=== PATIENT | male | born 1950 | race Caucasian/White ===

== ENCOUNTER → 2018-04-04 15:04 | Outpatient (CLI) | payer MEDICARE, OTHER ==
[2015-12-10 12:11] VITALS: BMI 33.5
[~2018-04-04 15:04] MED LIST: AMBIEN10 MG PO; BAYER ASPIRIN325 MG PO; DIOVAN320 MG PO; HYDROCODONE-APA1 TAB PO; LASIX20 MG PO; NAPROSYN500 MG PO; PLAVIX75 MG PO; PRAVACHOL40 MG PO; PRILOSEC20 MG PO; RYTHMOL225 MG PO; TENORMIN25 MG PO
== END | disposition home or self-care (01) ==
LOC: D.CT 15:04
DX: R10.9 Unspecified abdominal pain (principal)

== ENCOUNTER → 2018-04-18 12:21 | Outpatient (CLI) | payer MEDICARE, OTHER ==
[2015-12-10 12:11] VITALS: BMI 33.5
== END | disposition home or self-care (01) ==
LOC: D.NM 12:21
DX: R10.9 Unspecified abdominal pain (principal)

== ENCOUNTER → 2019-07-17 10:14 | Outpatient (CLI) | payer MEDICARE, OTHER ==
[2015-12-10 12:11] VITALS: BMI 33.5
[~2019-07-17 10:14] MED LIST changes: +COZAAR100 MG PO; +FISH OIL 1,0001 CA1 PO; +PROTONIX40 MG PO; +REQUIP0.25 MG PO; +VITAMIN D31000 UNIT PO
--- NOTE | 2019-07-25 11:41 | ST ---
PATIENT:IZABELA SAMUELS MEDICAL RECORD: [id number] SEX: M LOCATION:[facility] ORDER #: ADMISSION DATE: 07/17/19 AGE OF PATIENT: 69 REFERRING PHYSICIAN: INTERPRETING PHYSICIAN: ISIDRA MAYA MD DATE OF SERVICE: 07/17/2019 Nuclear Stress Test INDICATIONS: Angina, coronary artery disease, status post coronary bypass graft surgery, shortness of breath, hypertension. DESCRIPTION OF THE PROCEDURE: He was exercised on standard Lexiscan protocol with 33 mCi of sestamibi injected at peak stress, 11 mCi used previously for rest images. FINDINGS: Gated SPECT reveals a mildly depressed ejection fraction of 46% with dilated left ventricular cavity. SPECT Imaging: Cardiolite was used as myocardial perfusion agent. There are large areas of fixed perfusion defect anteriorly, septally, apically as well as inferiorly, this includes basal, mid, and apical anterior segments. The apical segment, septal, basal septal, mid septal, apex itself, basal inferior, mid inferior, apical inferior. There is no clear-cut evidence of reversible ischemia, but multiple areas of fixed perfusion defect. OVERALL IMPRESSION: This is a significantly abnormal nuclear stress test with dilated left ventricular cavity, depressed ejection fraction, multiple areas suggestive of previous myocardial infarctions in a patient with no past history of myocardial infarction and ongoing symptomatology, does suggest the presence of hemodynamically significant coronary artery disease and multivessel disease. TRANSINT:[id number] Voice Confirmation ID: [id number] DOCUMENT ID: [id number] ISIDRA MAYA MD at 1141 CC: LOUIS RODRIGEUZ [id number] DICTATION DATE: 07/18/19 1034 RN CHRONIC: 07/19/19 0143 DEP CLI 07/17/19 [facility] [address] [place] [address]
== END | disposition home or self-care (01) ==
LOC: D.HCCARDIO 10:14
PROVIDERS: ATTEND Internal Medicine Interventional Cardiology
DX: I25.119 Atherosclerotic heart disease of native coronary artery with unspecified angina pectoris (principal); I10 Essential (primary) hypertension; R06.02 Shortness of breath

== ENCOUNTER → 2019-07-24 10:24 | Outpatient (CLI) | payer MEDICARE, OTHER ==
[2015-12-10 12:11] VITALS: BMI 33.5
--- NOTE | 2019-07-25 11:41 | EC ---
PATIENT:IZABELA SAMUELS DATE OF SERVICE: 07/24/19 SEX: M MEDICAL RECORD: [id number] DATE OF : 48 LOCATION:[facility] AGE OF PATIENT: 69 ADMISSION DATE: 07/24/19 REFERRING PHYSICIAN: INTERPRETING PHYSICIAN: ISIDRA LUTZ MD ECHOCARDIOGRAM REPORT ECHO CHARGES 4 ECHO COMPLETE Date: 07/24/19 CLINICAL DIAGNOSIS: ANGINA/SOB H/O CAD/CABG/HTN/A-FIB ECHOCARDIOGRAPHIC MEASUREMENTS (adult normal given) AC root (d.<3.7cm) 4.2 cm LV Septum d (<1.2 cm> 1.2 cm Valve Excursion 1.9 cm LV Septum (systole) 1.8 cm Left Atria (s.<4.0cm> 4.6 cm LVPW d(<1.2cm) 1.3 cm RV (d.<2.3cm) 2.3 cm LVPW (sytole) 1.7 cm LV diastole(<5.6CM) 7.6 cm MV E-F(>70mm/sec) cm LV systole 5.6 cm LVOT Diameter 2.5 cm MV exc.(>10mm) cm Est.ejection fraction (50-75%) % DOPPLER: LVIT cm/sec A cm/sec E 139 cm/sec LA cm/sec RVSP 41.1 mmHg LVOT 132 cm/sec AOP1/2T m/s Asc. Ao 193 cm/sec RVOT 59.0 cm/sec RA cm/sec PA 114 cm/sec AV Gradient Peak 15.0 mmHg AV Mean 7.3 mmHg AV Area 3.3 cm MV Gradient Peak 8.5 mmHg MV Mean 3.0 mmHg MV Area cm COMMENTS: OP - HC Shale Miner Blasting: 1 ARNULFO BILLY School Inspector: 1 Dr. Lutz TAPE# PACS Pericardial Effusion N DATE OF SERVICE: FINDINGS: 1. Left ventricular chamber size is dilated. Left ventricular systolic function is mildly reduced at 40% to 45%. 2. Left atrium is enlarged at 4.6 cm. Right atrium and right ventricular chamber sizes are as well mildly dilated. 3. Valvular structures have normal structure and motion. 4. Doppler interrogation reveals moderate mitral regurgitation, mild tricuspid regurgitation, no other valvular insufficiency or stenosis. Pulmonary systolic ECHOCARDIOGRAM REPORT [id number] IZABELA SAMUELS pressure is estimated 41 mmHg. 5. No evidence of pericardial effusion or left ventricular thrombus. TRANSINT:[id number] Voice Confirmation ID: [id number] DOCUMENT ID: [id number] ISIDRA LUTZ MD at 1141 CC: [id number] DICTATION DATE: 07/25/19 0904 [employer]: 07/25/19 1033 DEP CLI 07/24/19 [place] [id number] [place] [id number]
== END | disposition home or self-care (01) ==
LOC: D.HCCECHO 10:24
PROVIDERS: ATTEND Internal Medicine Interventional Cardiology
DX: I48.0 Paroxysmal atrial fibrillation (principal)

== ENCOUNTER 2019-07-26 06:55 | Outpatient (CLI) | payer MEDICARE, OTHER ==
[~2019-07-26] VITALS: Ht 180.3 cm; Wt 106.8 kg
--- NOTE | ~2019-07-26 | HEMODYNAMI ---
PATIENT:IZABELA SAMUELS MEDICAL RECORD: [id number] : 48 LOCATION:[facility] ADMISSION DATE: 07/26/19 Generatedon:07/26/201910:53 Patient name: IZABELA SAMUELS Patient #: [id number] SSN: [id number] : 1950 Date of study: 07/26/2019 Page: Of Hemodynamic Procedure Report Patient Data Patient Demographics Procedure consent was obtained First Name: IZABELA Gender: Male Last Name: ARVIND : 1950 Middle Initial: KAREN Age: 69 year(s) Patient #: [id number] Race: SSN: [id number] Additional ID: [id number] Contact details [address]: [address] [place] [address] [place] State: [place] City: [place] Zip code: [address] Past Medical History Performed procedures and imaging results Date Procedure Procedure Results Comments Stress testing Positive->Intermediate with SPECT MPI risk Allergies Allergen Reaction Date Comments Reported Other allergy 07/26/2019 MORPHINE, PACERONE, PCN Admission Admission Data Admission Date: 07/26/2019 Admission Time: 6:55 Arrival Date: 07/26/2019 Arrival Time: 0:00 Insurance Payor: Medicare [facility] #: [id number] Height (in.): 71 BSA: 2.26 (m2) Height (cm.): 180.34 BMI: 32.9 (kg/m2) Weight (lbs.): 235.9 Weight (kg.): 107 Lab Results Lab Result Date: 07/26/2019 Lab Result Time: 0:00 Biochemistry Name Units Result Min Max BUN mg/dl 17 --(---*)-- 7 18 Creatinine mg/dl 1.2 --(---*)-- 0.6 1.3 eGFR ml/min 64.23200 *-(----)-- 90 120 NONAFRICAN CBC Name Units Result Min Max Hematocrit % 22.3 *-(----)-- 42 54 Hemoglobin g/dl 6.2 *-(----)-- 13.5 17.5 Procedure Procedure Types Cath Procedure Diagnostic Procedure C [facility] w/Coronaries w/Grafts Procedure Description Procedure Date Procedure Date: 07/26/2019 Procedure Start Time: 10:35 Procedure End Time: 10:49 Procedure Staff Name Function Butch Lutz MD Performing Physician Violeta Larkin RT Monitor Chandrika Patel RT Scrub Ed Collins RN Nurse Melanie Abarca RT Monitor Procedure Data Cath Procedure Fluoroscopy Diagnostic fluoroscopy Total fluoroscopy Time: 3.1 time: 3.1 min min Diagnostic fluoroscopy Total fluoroscopy dose: 603 dose: 603 mGy mGy Contrast Material Contrast Material Type Amount (ml) Isovue 300 83 Entry Location Entry Primary Successful Side Size Upsize Upsize Entry Closure Succes sful Closure Location (Fr) 1 (Fr) 2 (Fr) Remarks Device Remarks Femoral Right 5 Fr Exoseal artery Estimated blood loss: 5 ml Diagnostic catheters Device Type Used For End Catheter Placement MULTIPACK Pigtail 5 Fr LV Angiography catheter MULTIPACK JL 4.0 5Fr Left Coronary catheter Angiography MULTIPACK 3DRC 5Fr Procedure catheter DIAGNOSTIC AR2 MOD 5 Fr Procedure catheter ([id number]) Procedure Complications No complications Procedure Medications Medication Administration Route Dosage 0.9% NaCl I.V. 100 ml/hr Oxygen etCO2 Nasal cannula 2 l/min Heparin Flush Bag added to field 2 bags (1000units/500ml NS) Lidocaine 2% added to field 20 PRBC's 1 units Benadryl I.V. 50 mg Versed I.V. 2 mg Fentanyl I.V. 100 mcg Versed I.V. 1 mg PRBC's 1 units PRBC's 1 units Hemodynamics Rest BSA: 2.26 (m2) HGB: 6.2 (g/dl) O2 Consumption: Estimated: 252.43 (ml/min) O2 Con sumption indexed: Estimated:111.69 (ml/min/m) Heart Rate: 59 (bpm) Snapshots Pre Cath Intra NCS Post Cath Vital Signs Time Heart Resp SPO2 etCO2 NIBP Rhythm Pain Sedation Rate (ipm) (%) (mmHg) (mmHg) Status Level (bpm) 10:14:06 59 17 95 29.9 113/66(90) NSR 0 (11) 10(A) , No pain 10:18:20 60 18 95 26.1 112/71(90) NSR 0 (11) 10(A) , No pain 10:22:32 59 19 95 26.1 111/71(90) NSR 0 (11) 10(A) , No pain 10:26:46 58 17 92 30.6 111/69(98) NSR 0 (11) 10(A) , No pain 10:30:59 57 12 95 37.4 115/66(96) NSR 0 (11) 10(A) , No pain 10:35:14 60 13 94 23.1 105/63(84) NSR 0 (11) 10(A) , No pain 10:39:25 59 18 98 33.7 106/66(84) NSR 0 (11) 10(A) , No pain 10:43:35 59 14 96 17.9 107/70(83) NSR 0 (11) 9(A) , No pain 10:47:47 59 19 95 36.6 104/64(91) NSR 0 (11) 10(A) , No pain Medications Time Medication Route Dose Verified Delivered Reason Notes Effectiveness by by 10:15:35 PRBC's I.V. 1units Ed Ed anemia (infusing Karina Collins upon RN RN arrival) 10:19:29 0.9% NaCl I.V. 100 Ed Ed Per ml/hr Karina Collins physician RN RN 10:19:39 Oxygen etCO2 Nasal 2 Ed Ed for low 02 cannula l/min Karina Collins satyasmin RN RN 10:19:53 Heparin Flush added to 2 bags Ed Ed used for Bag field Karina Collins procedure (1000units/500ml RN RN NS) 10:20:30 Lidocaine 2% added to 20ml Ed Ed for local field vial Karina Collins anesthetic RN RN 10:21:58 PRBC's I.V. 1units Ed Ed anemia complete Karina Collins RN RN 10:31:05 Benadryl I.V. 50 mg Ed Ed Per Karina Collins physician RN RN 10:33:05 Fentanyl I.V. 100 Ed Ed for mcg Lorigan Karina sedation RN RN 10:33:55 Versed I.V. 2 mg Ed Ed for Lorigan Lorigan sedation RN RN 10:37:27 PRBC's I.V (2nd 1units Edchristopher Ward anemia unit Karina Collins started RN RN B-positive) 10:42:09 Versed I.V. 1 mg Ed Ward for Karina Collins sedation RN meat lugger Log Time Note 9:53:27 Informed consent obtained and on chart 9:54:17 Ed Collins RN sent for patient. Start room use. 9:54:18 Procedure Status Elective Heart Cath (OP). 9:54:20 Time tracking: Regular hours (M-F 7:00 - 5:00) 9:54:23 Plan of Care:Hemodynamics will remain stable., Cardiac rhythm will remain stable., Comfort level will be maintained., Respiratory function will remain adequate., Patient/ family verbilizes understanding of procedure., Procedure tolerated without complication., Recovers from procedure without complications.. 9:57:03 H&P Date Dictated: 07/11/2019 Within 30 days and on chart., H&P Addendum completed by physician on day of procedure. (MUST COMPLETE FOR ALL OUTPATIENTS). 9:57:23 Patient allergic to Other allergyMORPHINE, PACERONE, PCN 9:57:57 Lab Result : BUN 17 mg/dl 9:57:57 Lab Result : eGFR NONAFRICAN 64.25565 ml/min 9:57:57 Lab Result : Creatinine 1.2 mg/dl 9:57:57 Lab Result : Hemoglobin 6.2 g/dl 9:57:57 Lab Result : Hematocrit 22.3 % 9:58:16 AWARE OF LABS. PT. RECEIVING UNITS OF BLOOD. 9:58:27 Patient Weight : 235.9 lbs 9:58:31 Patient Height : 71 inches 9:58:37 Arrival Date: 07/26/2019 12:00:00 AM 9:58:53 Insurance Payor : Medicare 10:01:57 ACC Patient presents with Stable Angina CCS Anginal Class 3--Marked limitation of physical activity, angina occurs with ordinary activity.. 10:02:09 ACCPatient has been prescribed/administered the following anti-anginal medication within the last 2 weeks: Beta Ar, ARB 10:05:13 Risk of Mortality: .5 10:05:17 Risk of blood transfusion: 31.6 10:05:22 Risk of THADDEUS: 4.9 10:05:47 Stress Test: yes; normal ? 10:05:56 Patient received from Pre/Post Procedure Room to CCL 1 Alert and oriented. Tansferred to table in Supine position. 10:05:57 Warm blankets applied, and isis hugger turned on for patient comfort. 10:05:58 Correct patient and procedure confirmed by team. 10:05:58 ECG and BP/O2 sat monitors applied to patient. 10:06:00 Full Disclosure recording started 10:06:02 Pre-procedure instructions explained to patient. 10:06:02 Pre-op teaching completed and patient verbalized understanding. 10:06:04 Family in patients room. 10:06:05 Patient NPO since Midnight. 10:12:59 Vital chart was started 10:13:02 Baseline sample Acquired. 10:13:32 Is the patient allergic to Iodine/contrast media? No. 10:13:41 Was the patient premedicated? Yes 10:13:47 Is patient on blood thinner?Yes 10:13:56 ACC The patient was administered the following blood thiners within the last 24 hours: ACCPlavix 10:14:00 Patient diabetic? No. 10:15:00 Rhythm: sinus bradycardia 10:15:16 ----Pre-sedation anethsthesia assessment.---- 10:15:21 Previous problem with sedation/anesthesia? No ? 10:15:28 Sleep apnea? Yes 10:15:35 PRBC's 1units I.V. (infusing upon arrival) was administered by Ed Collins RN; anemia; Verbal order read back and verified. 10:15:37 Snore? Yes 10:15:44 Deviated septum? No 10:15:46 Opens mouth fully? Yes 10:15:48 Sticks out tongue? Yes 10:18:34 Airway obstruction? Yes WEARS CPAP AT NIGHT 10:18:41 Dentures? No ? 10:18:46 Pre procedure: right dorsailis pedis pulse 2+ Normal; easily identifiable; not easily obliterated 10:19:06 Patient pain scale 0/10 ?. 10:19:16 IV patent on arrival in right wrist with 0.9% NaCl at KVO. 10:19:24 Lab results completed and on chart. 10:19:29 0.9% NaCl 100 ml/hr I.V. was administered by Ed Collins RN; Per physician; Verbal order read back and verified. 10:19:29 Right groin area was prepped with chlora-prep and draped in sterile fashion 10:19:32 Alarms reviewed by R. N. 10:19:32 Sharps counted by scrub and verified by R.N. 10:19:34 Physician arrived 10:19:39 Oxygen 2 l/min etCO2 Nasal cannula was administered by Ed Collins RN; for low 02 sats; Verbal order read back and verified. 10:19:53 Heparin Flush Bag (1000units/500ml NS) 2 bags added to field was administered by Ed Collins RN; used for procedure; Verbal order read back and verified. 10:20:30 Lidocaine 2% 20ml vial added to field was administered by Ed Collins RN; for local anesthetic; Verbal order read back and verified. 10:20:32 Use device set Femoral Dx 10:20:34 ACIST Syringe (36339) opened to sterile field. 10:20:35 Bag Decanter (2002S) opened to sterile field. 10:20:36 Medline Cath Pack ([id number]) opened to sterile field. 10:20:39 ACIST Hand Control (01031) opened to sterile field. 10:20:42 ACIST Manifold (53283) opened to sterile field. 10:20:44 DIAGNOSTIC Multipack 5Fr catheter set (CF0070) opened to sterile field. 10:20:45 Tegaderm 4 x 4 (1626W) opened to sterile field. 10:20:47 SHEATH 5FR [place] (OQR950) opened to sterile field. 10:20:49 EMERALD Guide Wire (051-371) opened to sterile field. 10:21:58 PRBC's 1units I.V. complete was administered by Ed Collins RN; anemia; Verbal order read back and verified. 10:22:50 Zero performed for pressure channel P1 10:23:28 Zero performed for pressure channel P1 10:24:02 Zero performed for pressure channel P1 10:31:05 Benadryl 50 mg I.V. was administered by Ed Collins RN; Per physician; Verbal order read back and verified. 10:33:00 Physician arrived 10:33:02 --------ALL STOP TIME OUT------ 10:33:04 Final Timeout: patient, procedure, and site verified with staff and physician. All members of the team are in agreement. 10:33:05 Fentanyl 100 mcg I.V. was administered by Ed Collins RN; for sedation; Verbal order read back and verified. 10:33:06 Right groin site verified by team. 10:33:12 Fire Safety Assessment: A--An alcohol-based skin anteseptic being used preoperatively., C--Open oxygen or nitrous oxide is being used., D--An ESU, laser, or fiber-optic light is being used. 10:33:17 Physical assessment completed. ASA score P 3 - A patient with severe systemic disease as per Butch Lutz MD. 10:33:21 2) 60-89 Mildly reduced kidney function, and other findings (as for stage 1) point to kidney disease. 10:33:25 Maximum allowable contrast dose (3.7 X eGFR X 0.75)214 ml. 10:33:31 Sedation plan: IV Moderate Sedation Medication:Versed, Fentanyl 10:33:55 Versed 2 mg I.V. was administered by Ed Collins RN; for sedation; Verbal order read back and verified. 10:34:11 Zero performed for pressure channel P1 10:34:16 Zero performed for pressure channel P1 10:34:39 Zero performed for pressure channel P1 10:35:06 Zero performed for pressure channel P1 10:35:28 Procedure started. 10:35:53 Local anesthetic to right femoral artery with Lidocaine 2% by Butch Lutz MD.INITIAL ACCESS ONLY 10:37:27 PRBC's 1units I.V (2nd unit started B-positive) was administered by Ed Collins RN; anemia; Verbal order read back and verified. 10:38:58 A 5 Fr sheath was inserted into the Right Femoral artery 10:39:12 A MULTIPACK Pigtail 5 Fr catheter was advanced over the wire and used for LV Angiography. 10:39:15 LV gram done using JEFFRIES 10:39:22 EF : 30 % 10:39:27 Injector settings: Ml/sec: 10, Volume: 20, 10:39:29 Catheter removed. 10:39:35 A MULTIPACK JL 4.0 5Fr catheter was advanced over the wire and used for Left Coronary Angiography. 10:39:41 LCA angiography performed. 10:40:35 Injector settings: Ml/sec: 3, Volume: 6, 10:40:39 Catheter removed. 10:40:46 A MULTIPACK 3DRC 5Fr catheter was advanced over the wire and used for Procedure. 10:41:47 PEACE to LAD angiography performed. 10:41:54 Injector settings: Ml/sec: 3, Volume: 6, 10:42:09 Versed 1 mg I.V. was administered by Ed Collins RN; for sedation; Verbal order read back and verified. 10:42:45 RCA angiography performed. 10:42:50 Injector settings: Ml/sec: 3, Volume: 6, 10:43:00 Catheter removed. 10:43:08 A DIAGNOSTIC AR2 MOD 5 Fr catheter ([id number]) was advanced over the wire and used for Procedure. 10:43:31 RCA angiography performed. 10:44:16 SVG to Ramus angiography performed. 10:44:21 Injector settings: Ml/sec: 3, Volume: 6, 10:44:37 SVG to RCA angiography performed. 10:45:02 ACCDominant side:Co-Dominant 10:45:21 Catheter removed. 10:45:26 EXOSEAL 5Fr (EX500) opened to sterile field. 10:45:44 Sheath removed intact; hemostasis achieved with Exoseal to the Right Femoral artery. 10:45:48 Procedure ended.(Physican Out) 10:46:12 Contrast amount:Isovue 300 83ml. 10:46:27 Maximum allowable dose exceeded? No. 10:46:51 Fluoroscopy time 03.10 minutes. 10:47:00 Fluoroscopy dose: 603 mGy 10:47:00 Flurop Dose total: 603 10:47:08 Dose Area Product 74737 mGy/cm. 10:47:11 Sharps counted by scrub and verified by R.N. 10:47:14 Insertion/operative site no bleeding no hematoma. 10:47:19 Post-op/insertion site Right Femoral artery dressed using a 4 x 4 and Tegaderm. 10:47:24 Post right femoral artery:stable 10:47:26 Post Procedure Pulses reassessed and unchanged 10:47:32 Post-procedure physical assessment completed. ASA score P 3 - A patient with severe systemic disease as per Butch Lutz MD. 10:47:36 Post procedure rhythm: unchanged. 10:47:40 Estimated blood loss: 5 ml 10:47:43 Post procedure instruction explained to patient.Patient verbalizes understanding. 10:47:43 Patient needs reinforcement of post procedure teaching. 10:48:17 Procedure type changed to Cath procedure, Diagnostic procedure, LHC, LHC w/Coronaries w/Grafts 10:48:47 Procedure and supply charges have been captured, reviewed, submitted and are correct. 10:48:55 Procedure Complication : No complications 10:48:59 Vital chart was stopped 10:49:06 [facility] Findings: mild to moderate CAD (<70%) 10:49:11 Operative report dictated upon procedure completion. 10:49:12 See physician's report for complete and final results. 10:49:14 Report given to Pre/Post Procedure Room. 10:49:18 Patient transfered to Pre/Post Procedure Room with Stretcher. 10:49:21 Procedure ended. 10:49:21 Full Disclosure recording stopped 10:49:26 End room use (Document Last) Device Usage Item Name Manufacture Quantity Catalog Hospital Part Current Minimal L ot# / Number Charge Number Stock Stock Serial# Code ACIST Acist 1 03524 [id number] 589561 118153 20 Syringe Medical (52488) Systems Inc Bag Microtek 1 2001S 873689 71945 686204 5 Decanter Medical Inc. () Medline Medline 1 [id number] 179769 34623 778250 5 Cath Pack ([id number]) ACIST Hand Acist 1 39255 204830 020630 777178 5 Control Medical (40424) Systems Inc ACIST Acist 1 55420 422421 663535 059583 5 Manifold Medical (12412) Systems Inc DIAGNOSTIC Cardinal 1 [id number] 313609 31937 192527 30 MultipKinderLab Robotics 5Fr catheter set (RX4096) Tegaderm 4 3M 1 1626W 352128 982258 325878 5 x 4 (1626W) SHEATH 5FR Terumo 1 DJC275 021445 785580 699406 5 [place] (STS509) EMERALD Cardinal 1 502-455 347249 689489 426907 5 Guide Wire [facility] (502-455) MULTIPACK Cardinal 1 022230 5 Pigtail 5 Health Fr catheter MULTIPACK Cardinal 1 192280 5 JL 4.0 5Fr Health catheter MULTIPACK Cardinal 1 152725 5 3DRC 5Fr Health catheter DIAGNOSTIC Cardinal 1 [id number] 598831 184662 582730 20 AR2 MOD 5 Health Fr catheter ([id number]) EXOSEAL 5Fr Cardinal 1 EX500 035689 172766 920865 10 (EX500) Health Signature Audit [place] Stage Time Signature Unsigned Intra-Procedure 07/26/2019 Violeta 10:52:15 AM Trae RT(R) (CV) Intra-Procedure 07/26/2019 Ed 10:52:47 AM Karina VERAS Intra-Procedure 07/26/2019 Butch Lutz 10:53:12 AM [place] [id number] [place] [address]
[~2019-07-26 06:55] MED LIST changes: -COZAAR100 MG PO; -FISH OIL 1,0001 CA1 PO; -PROTONIX40 MG PO; -REQUIP0.25 MG PO; -VITAMIN D31000 UNIT PO
[2019-07-26] MEDS ORDERED: COZAAR100 MG PO (07:24)
[2019-07-26] MEDS ORDERED: PROTONIX40 MG PO (07:24)
[2019-07-26] MEDS ORDERED: REQUIP0.25 MG PO (07:24)
[2019-07-26] MEDS ORDERED: VITAMIN D31000 UNIT PO (07:25)
[2019-07-26] MEDS ORDERED: FISH OIL 1,0001 CA1 PO (07:25)
[2019-07-26 07:45] VITALS: BP 114/60; Ht 180.3 cm; Wt 106.8 kg
[2019-07-26 07:58] LABS: BASOPHILS 0.6 % (0-2); HEMATOCRIT 22.3 % (42.0-54.0); IMMATURE GRANULOCYTES 0.2 % (0-5); LYMPHOCYTES 23.6 % (15-50); MCH 20.8 pg (26.0-34.0); MCHC 27.8 g/dL (31.0-37.0); MCV 74.8 fL (80.0-100.0); MONOCYTES 10.4 % (2-11); NEUTROPHILS 57.2 % (40-80); PLATELET COUNT 148 10x3/uL (130-400); RBC 2.98 10x6/uL (4.20-6.10); RDW 17.7 % (11.5-14.5); WBC 5.4 10x3/uL (4.8-10.8)
[2019-07-26 08:07] LABS: HEMOGLOBIN 6.2 g/dL (13.5-17.5)
[2019-07-26 08:26] LABS: ANION GAP 14.5 mmol/L (8-16); CALCIUM 8.2 mg/dL (8.5-10.1); CARBON DIOXIDE 23.6 mmol/L (21.0-32.0); CHOL - HDL RATIO 5.8 ratio (2.3-4.9); CREATININE - SERUM 1.2 mg/dL (0.6-1.3); LDL-HDL RATIO 4.3 ratio (1.5-3.5); POTASSIUM - SERUM 4.1 mmol/L (3.5-5.1)
--- NOTE | 2019-07-26 11:00 | NUR ---
PATIENT ARRIVED TO ROOM 2, PLACED ON CM. VSS ON 2L NC. RIGHT GROIN DRESSING IS CDI, NO S/S OF BLEEDING OR HEMATOMA. BLOOD INFUSING THROUGH RIGHT PERIPHERAL IV. NO S/S OF REACTION.
--- NOTE | 2019-07-26 11:15 | NUR ---
PATIENT INTERMITTENTLY RESTING, VSS ON 2L NC. RIGHT GROIN DRESSING IS CDI, NO S/S OF LBEEDING ORHEMATOMA. NO C/O PAIN,NUMBNESS, OR TINGLING. SPOUSE PRESENT AT BEDSIDE. TOLERATING PO FLUIDS, NO N/V. BLOOD INFUSING.
--- NOTE | 2019-07-26 11:45 | NUR ---
PATIENT AWAKE, VSS ON 2L NC. RIGHT GROIN DRESSING IS CDI, NO S/S OF BLEEDING OR HEMATOMA. NO C/O PAIN, NUMBNESS, OR TINGLING. NO N/V. SPOKE WITH FAMILY, CONFIRMED THAT DR. MAYA STATED THAT PATIENT SHOULD FOLLOW UP WITH PRIMARY CARE PHYSICIAN UPON DISCHARGE RELATED TO HEMOGLOBIN AND HEMATOCRIT LEVELS. PHYSICIAN STATED THAT WE WILL NOT RECHECK HEMOGLOBIN AND HEMATOCRIT LEVELS BEFORE DISCHARGE.
--- NOTE | 2019-07-26 12:00 | NUR ---
HEAD OF BED ELEVATED TO 45 DEGREES. RIGHT GROIN DRESSING IS CDI, NO S/S OF BLEEDING OR HEMATOMA. NO C/O PAIN, NUMBNESS, OR TINGLING. PATIENT GIVEN TURKEY SANDWICH AND WATER, NO N/V. VSS ON ROOM AIR. PRESENT AT BEDSIDE.
--- NOTE | 2019-07-26 12:30 | NUR ---
HEAD OF BED AT 90 DEGREES. RIGHT GROIN DRESSING IS CDI, NO S/S OF BLEEDING OR HEMATOMA. VSS ON ROOM AIR. BLOOD FINISHED INFUSING AT 1215. IV FLUSHED WITH NORMAL SALINE. NO C/O PAIN, NUMBNESS, OR TINGLING.
--- NOTE | 2019-07-26 12:50 | NUR ---
VSS ON ROOM AIR. RIGHT GROIN DRESSING IS CDI, NO S/S OF BLEEDING OR HEMATOMA. NO C/O PAIN, NUMBNESS, OR TINGLING. TOLERATING PO FLUIDS AND FOOD, NO N/V. PERIPHERAL IVS REMOVED. EDUCATION REGARDING DISCHARGE INSTRUCTIONS GIVEN TO PATIENT AND SPOUSE, BOTH VOICE UNDERSTANDING.
--- NOTE | 2019-07-26 13:10 | NUR ---
PATIENT DISCONNECTED FROM MONITORS TO GET DRESSED. RIGHT GROIN DRESSING IS CDI, NO S/S OF BLEEDING OR HEMATOMA.
--- NOTE | 2019-07-26 13:15 | NUR ---
PATIENT VOIDED WITHOUT DIFFICULTY. PATIENT TRANSPORTED VIA WHEELCHAIR TO CAR WITH SPOUSE DRIVING, ALL BELONGINGS WITH PATIENT.
--- NOTE | 2019-08-02 14:07 | OP ---
PATIENT NAME: IZABELA SAMUELS MEDICAL RECORD: [id number] :48 LOCATION:[facility] ADMISSION DATE: SURGEON: ISIDRA MAYA MD DATE OF OPERATION: 07/26/2019 PROCEDURES: 1. Left heart catheterization. 2. Selective coronary angiography. 3. Vein graft angiography. 4. PEACE angiography. 5. Left ventriculogram. INDICATION: Angina, coronary artery disease, and cardiomyopathy. PROCEDURE IN DETAIL: After informed consent was obtained and after a detailed description of risks, benefits as well as alternative therapies, the patient elected to proceed with angiogram and heart catheterization. The right femoral area was prepped and draped in normal sterile fashion. Right femoral artery was cannulated via modified Seldinger technique with placement of 6-Divehi sheath. All catheters exchanged through this sheath. FINDINGS: The left ventriculogram was performed in standard 30-degree JEFFRIES view, reveals depressed cardiac wall motion throughout all segments. Ejection fraction in the 30% to 35% range. SELECTIVE CORONARY ANGIOGRAPHY: 1. Left main is with no significant angiographic disease. 2. Left anterior descending is totally occluded. 3. Left circumflex has 90% stenosis of the ramus intermedius. 4. PEACE to the LAD is widely patent. Distal LAD is widely patent. 5. Vein graft to the ramus intermedius is widely patent. Distal ramus intermedius is widely patent. 6. The right coronary artery has moderate irregularities proximally with an 80% stenosis in the mid vessel. 8. Vein graft to the RCA is widely patent. Distal RCA is widely patent. OVERALL IMPRESSION: Patency of all grafts, ischemic cardiomyopathy, ejection fraction 30%. Center medical management on treatment of the cardiomyopathy. TRANSINT:[id number] Voice Confirmation ID: [id number] DOCUMENT ID: [id number] ISIDRA MAYA MD at 1407 CC: [id number] DICTATION DATE: 07/26/19 1050 CONSTRUCTION LINEMAN: 07/26/19 1101 DEP CLI 07/26/[address] [address]
== END 2019-07-26 12:15 ==
LOC: D.CATH 06:55
PROVIDERS: ATTEND Internal Medicine Interventional Cardiology
DX: I25.110 Atherosclerotic heart disease of native coronary artery with unstable angina pectoris (principal); R94.30 Abnormal result of cardiovascular function study, unspecified; I42.9 Cardiomyopathy, unspecified

== ENCOUNTER 2019-09-18 11:59 | Day surgery (SDC) | payer MEDICARE, OTHER ==
[~2019-09-18] VITALS: Ht 180.3 cm; Wt 104.5 kg
--- NOTE | ~2019-09-18 | OP ---
PATIENT NAME: IZABELA SAMUELS MEDICAL RECORD: [id number] :48 LOCATION:[facility] ADMISSION DATE: SURGEON: ROSA HALL DO DATE OF OPERATION: 09/18/2019 PROCEDURE: EGD with biopsies. 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 SCOPE: Olympus video gastroscope. MEDICATIONS: Propofol 150 mg IV per anesthesia. ESTIMATED BLOOD LOSS: Minimal. COMPLICATIONS: None. FINDINGS: Informed consent was given. The patient was made comfortable with the above medication. After reaching an adequate level of sedation by slow IV push, the patient was placed on his left side. The endoscope was advanced under direct visualization through the mouth to the second portion of the duodenum with ease. The entire esophagus appeared normal. 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 Random cold forceps biopsies were taken from the squamocolumnar junction to rule out the presence of Kim's mucosa. The endoscope was advanced beyond the GE junction into the stomach and retroflexed view the cardia and fundus, which appeared normal. The body of the stomach also appeared normal. In the antrum and prepyloric region, there were few scattered erosions, which appeared consistent with NSAID-induced erosions. There was some minor erythema and granularity surrounding the sites consistent with mild gastritis. Random cold forceps biopsies were taken from the antrum to submit for histopathology and to rule out the presence of H. pylori. The endoscope was advanced beyond the pylorus into the duodenum, which appeared normal to the second portion. The endoscope was then withdrawn from the patient. The patient tolerated the procedure well and there were no complications. IMPRESSION: 1. 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 Biopsies pending. 2. Mild erosive gastritis consistent with NSAID-induced erosions. Site was located to the antrum. PLAN AND RECOMMENDATIONS: 1. Discharge home when recovery parameters are met. 2. Follow up with the biopsy specimen results. 3. GERD diet and reflux precautions. 4. Continue current medications including pantoprazole 40 mg daily. 5. The patient does take aspirin 325 mg daily, which is likely causing his minor erosions. I do not think that any medications need changed or adjusted based on endoscopic findings. 6. If GI bleeding is a further concern, consider colonoscopy for further evaluation. TRANSINT:[id number] Voice Confirmation ID: [id number] DOCUMENT ID: [id number] OPERATIVE REPORT [id number] IZABELA SMAUELS NATHAN A DO CC: [id number] DICTATION DATE: 09/18/191408 PACK CHANGER: 09/18/19 2252 [facility] 09/18/19 [place] [id number] [place] [id number]
[~2019-09-18 11:59] MED LIST changes: +COZAAR100 MG PO; +FISH OIL 1,0001 CA1 PO; +PROTONIX40 MG PO; +REQUIP0.25 MG PO; +VITAMIN D31000 UNIT PO
[2019-09-18 12:23] LABS: HEMATOCRIT 35.1 % (42.0-54.0); HEMOGLOBIN 10.7 g/dL (13.5-17.5); MCH 25.2 pg (26.0-34.0); MCHC 30.5 g/dL (31.0-37.0); MCV 82.6 fL (80.0-100.0); PLATELET COUNT 151 10x3/uL (130-400); RBC 4.25 10x6/uL (4.20-6.10); RDW 20.8 % (11.5-14.5); WBC 6.2 10x3/uL (4.8-10.8)
[2019-09-18 12:31] LABS: ANION GAP 11.8 mmol/L (8-16); CALCIUM 8.9 mg/dL (8.5-10.1); CARBON DIOXIDE 27.2 mmol/L (21.0-32.0); CREATININE - SERUM 1.1 mg/dL (0.6-1.3)
[2019-09-18] MEDS ORDERED: LYRICA50 MG PO (13:18)
[2019-09-18 13:27] VITALS: BP 119/71; Ht 180.3 cm; Wt 104.5 kg
[2019-09-18] MEDS ORDERED: SYNTHROID50 MCG PO (13:31)
--- NOTE | 2019-09-18 15:03 | NUR ---
1445 IV DC'D. CATHETER TIP INTACT. PRESSURE HELD FOR 5 MINUTES UNTIL BLEEDING CEASED. BANDAID APPLIED. [address] HALL TO INSTRUCT PT WHEN HE MAY RESUME PLAVIX.
--- NOTE | 2019-09-18 15:29 | NUR ---
[address] HALL. STATES THAT PT MAY RESUME PLAVIX 09/19/19 INFORMATION RELAYED TO PT
== END 2019-09-18 15:10 | disposition home or self-care (01) ==
LOC: D.OPS 11:59
PROVIDERS: Anesthesiology; ATTEND Internal Medicine Gastroenterology
DX: D50.9 Iron deficiency anemia, unspecified (principal); R12 Heartburn; K75.81 Nonalcoholic steatohepatitis (NASH); K74.0 Hepatic fibrosis; K74.60 Unspecified cirrhosis of liver

== ENCOUNTER 2020-11-20 10:47 | Day surgery (SDC) | payer MEDICARE, OTHER ==
[~2020-11-20] VITALS: Ht 180.3 cm; Wt 115.5 kg
[~2020-11-20 10:47] MED LIST changes: +LYRICA50 MG PO; +SYNTHROID50 MCG PO
[2020-11-20 11:36] LABS: HEMATOCRIT 28.7 % (42.0-54.0); HEMOGLOBIN 8.9 g/dL (13.5-17.5); MCH 27.6 pg (26.0-34.0); MCV 89.1 fL (80.0-100.0); MEAN PLATELET VOLUME 11.4 fL (7.4-10.4); RBC 3.22 10x6/uL (4.20-6.10); WBC 4.3 10x3/uL (4.8-10.8)
[2020-11-20 11:52] LABS: INR 1.27 (0.85-1.17); PROTIME 14.8 SECONDS (11.6-15.0)
[2020-11-20 13:10] LABS: CALCIUM 8.3 mg/dL (8.5-10.1); CREATININE - SERUM 1.3 mg/dL (0.6-1.3)
[2020-11-20 13:16] VITALS: BP 119/53; Ht 180.3 cm; Wt 115.5 kg
[2020-11-20 13:40] LABS: ALBUMIN 3.2 g/dL (3.4-5.0); BILIRUBIN - TOTAL 0.74 mg/dL (0.2-1.3)
[2020-11-20 13:55] LABS: BASOPHILS 0.7 % (0-2); EOSINOPHILS 5.8 % (0-7); HEMATOCRIT 28.7 % (42.0-54.0); HEMOGLOBIN 8.9 g/dL (13.5-17.5); IMMATURE GRANULOCYTES 0.2 % (0-5); LYMPHOCYTE ABS# 1.36 10x3/uL (1.32-3.57); LYMPHOCYTES 31.6 % (15-50); MCH 27.7 pg (26.0-34.0); MCV 89.4 fL (80.0-100.0); MONOCYTES 11.2 % (2-11); NEUTROPHIL ABS# 2.17 10x3/uL (1.78-5.38); NEUTROPHILS 50.5 % (40-80); PLATELET COUNT 124 10x3/uL (130-400); RBC 3.21 10x6/uL (4.20-6.10); WBC 4.3 10x3/uL (4.8-10.8)
--- NOTE | 2020-11-20 15:00 | NUR ---
DISCHARGE INSTRUCTIONS REVIEWED WITH PATIENT AND SPOUSE. BOTH VOICED UNDERSTANDING. PROVIDED COPY OF INSTRUCTIONS AND LIST OF NSAIDS TO AVOID FOR 10-14 DAYS. INSTRUCTED PT TO RESTART PLAVIX AND BABY ASA TOMORROW AND BOTH VOICED UNDERSTANDING OF THIS. IV THEN DC'D WITH CATH TIP INTACT AND PT UP GETTING DRESSED.
--- NOTE | 2020-11-20 15:15 | NUR ---
PT DISCHARGED VIA W/C, ACCOMPANIED BY EDA HSU, TO [facility] WITH SPOUSE DRIVING. ALL BELONGINGS WITH PT.
--- NOTE | 2020-11-21 14:44 | OP ---
PATIENT NAME: IZABELA SAMUELS MEDICAL RECORD: [id number] :49 LOCATION:[facility] ADMISSION DATE: SURGEON: NISHA LEE MD DATE OF OPERATION: 11/20/2020 PREOPERATIVE DIAGNOSIS: Dysphagia. MEDICATION: Propofol per anesthesia. Upper endoscopy was performed. The endoscope was advanced through the mouth and advanced to the second part of the duodenum. The proximal and mid esophagus were normal. In the distal esophagus was a mild esophageal stricture. This was dilated with an 18, 19, 20 mm balloon. In the gastric body was erythema consistent with gastritis. There were also a few scattered antral erosions. The duodenum was normal. The patient tolerated the procedure well. There were no immediate complications. FINAL DIAGNOSIS: Mild esophageal stricture dilated with an 18, 19, 20 mm balloon. Gastritis, gastric erosions. Duodenum normal. PLAN: Check histology results. Advance diet. Avoid NSAIDs. The gastric erosions and superficial ulcers in the antrum could be contributing to this patient's anemia. The patient is status post EGD with dilation today. Based on his symptoms, he may or may not need a repeat EGD. I will schedule him for followup in the office and prescribe a proton pump inhibitor if he is not already on one. TRANSINT:[id number] Voice Confirmation ID: [id number] DOCUMENT ID: [id number] NISHA LEE MD at 1444 CC: [id number] DICTATION DATE: 11/20/20 1429 PERSONAL BANKING ADVISOR: 11/20/20 2316 [facility] 11/20/20 [place] [id number] [place] [address]
== END 2020-11-20 15:15 | disposition home or self-care (01) ==
LOC: D.OPS 10:47
PROVIDERS: Anesthesiology; ATTEND Internal Medicine Gastroenterology
DX: R13.10 Dysphagia, unspecified (principal); K22.2 Esophageal obstruction; K29.70 Gastritis, unspecified, without bleeding; K74.60 Unspecified cirrhosis of liver

== ENCOUNTER → 2020-11-27 11:05 | Outpatient (CLI) | payer MEDICARE, OTHER ==
[2020-11-20 13:16] VITALS: BMI 35.5
--- NOTE | ~2020-11-27 | EC ---
PATIENT:IZABELA SAMUELS DATE OF SERVICE: 11/27/20 SEX: M MEDICAL RECORD: [id number] DATE OF : 48 LOCATION:[facility] AGE OF PATIENT: 70 ADMISSION DATE: 11/27/20 REFERRING PHYSICIAN: INTERPRETING PHYSICIAN: FLY GILMORE MD ECHOCARDIOGRAM REPORT ECHO CHARGES 4 ECHO COMPLETE Date: 11/27/20 CLINICAL DIAGNOSIS: LOWER EDEMA/CAD/CABG ASSESS EF ECHOCARDIOGRAPHIC MEASUREMENTS (adult normal given) AC root (d.<3.7cm) 4.0 cm LV Septum d (<1.2 cm> 1.3 cm Valve Excursion 1.9 cm LV Septum (systole) 1.5 cm Left Atria (s.<4.0cm> 4.3 cm LVPW d(<1.2cm) 1.2 cm RV (d.<2.3cm) 4.1 cm LVPW (sytole) 1.7 cm LV diastole(<5.6CM) 7.6 cm MV E-F(>70mm/sec) cm LV systole 5.3 cm LVOT Diameter 2.4 cm MV exc.(>10mm) 1.7 cm Est.ejection fraction (50-75%) % DOPPLER: LVIT cm/sec A 74.0 cm/sec E 98.0 cm/sec LA cm/sec RVSP 36 mmHg LVOT 129 cm/sec AOP1/2T m/s Asc. Ao 208 cm/sec RVOT 103 cm/sec RA cm/sec PA 130 cm/sec AV Gradient Peak 17.31mmHg AV Mean 9.20 mmHg AV Area 3.0 cm MV Gradient Peak 6.23 mmHg MV Mean 2.71 mmHg MV Area cm COMMENTS: Technical Operator: 2 LIDIA FRAGA Dispatch Clerk: 3 Dr. Andrews TAPE# PACS Pericardial Effusion N DATE OF SERVICE: Adequate 2D, color flow imaging, spectral Doppler, and M-Mode. LVH is present. LV internal dimensions are normal. Wall motion normal. EF greater than or equal to 55%. Aortic valve is tricuspid. No evidence of stenosis by Doppler interrogation. Left atrium is dilated at 4.3 cm. Mitral valve shows no prolapse. Mild MR. Right-sided chambers are grossly normal. Mild TR. ECHOCARDIOGRAM REPORT [id number] IZABELA SAMUELS TRANSINT:[id number] Voice Confirmation ID: [id number] DOCUMENT ID: [id number] FLY GILMORE MD CC: [id number] DICTATION DATE: 11/28/20 1638 PARADI OPERATOR: 11/28/202012 DE[facility] CLI 11/27/20 [place] [id number]
== END | disposition home or self-care (01) ==
LOC: D.HCCECHO 11:00
PROVIDERS: ATTEND Internal Medicine Interventional Cardiology
DX: I48.91 Unspecified atrial fibrillation (principal)

== ENCOUNTER → 2020-12-25 12:51 | Outpatient (CLI) | payer MEDICARE, OTHER ==
[2020-11-20 13:16] VITALS: BMI 35.5
[~2020-12-25 12:51] MED LIST changes: +PEPCID40 MG PO
== END | disposition home or self-care (01) ==
LOC: D.NM 12:51
PROVIDERS: ATTEND Internal Medicine Gastroenterology
DX: R10.11 Right upper quadrant pain (principal); R13.10 Dysphagia, unspecified

== ENCOUNTER 2020-12-26 11:46 | Day surgery (SDC) | payer MEDICARE, OTHER ==
[~2020-12-26] VITALS: Ht 180.3 cm; Wt 109.1 kg
[~2020-12-26 11:46] MED LIST changes: -PEPCID40 MG PO
[2020-12-26 12:38] LABS: ALBUMIN 3.7 g/dL (3.4-5.0); BILIRUBIN - TOTAL 0.91 mg/dL (0.2-1.3); CALCIUM 9.6 mg/dL (8.5-10.1); CARBON DIOXIDE 24.8 mmol/L (21.0-32.0); CREATININE - SERUM 1.1 mg/dL (0.6-1.3); POTASSIUM - SERUM 3.8 mmol/L (3.5-5.1); PROTEIN - SERUM 8.3 g/dL (6.4-8.2)
[2020-12-26 12:55] LABS: BASOPHILS 0.5 % (0-2); EOSINOPHILS 4.4 % (0-7); HEMATOCRIT 31.5 % (42.0-54.0); HEMOGLOBIN 9.2 g/dL (13.5-17.5); IMMATURE GRANULOCYTES 0.2 % (0-5); LYMPHOCYTE ABS# 1.53 10x3/uL (1.32-3.57); LYMPHOCYTES 24.7 % (15-50); MCH 26.1 pg (26.0-34.0); MCHC 29.2 g/dL (31.0-37.0); MCV 89.5 fL (80.0-100.0); MEAN PLATELET VOLUME 12.2 fL (7.4-10.4); NEUTROPHIL ABS# 3.73 10x3/uL (1.78-5.38); NEUTROPHILS 60.2 % (40-80); RBC 3.52 10x6/uL (4.20-6.10); RDW 17.5 % (11.5-14.5); WBC 6.2 10x3/uL (4.8-10.8)
[2020-12-26 12:59] LABS: INR 1.23 (0.85-1.17); PROTIME 14.4 SECONDS (11.6-15.0)
[2020-12-26 13:01] LABS: PLATELET COUNT 156 10x3/uL (130-400)
[2020-12-26 13:30] VITALS: BP 147/76; Ht 180.3 cm; Wt 109.1 kg
[2020-12-26] MEDS ORDERED: PEPCID40 MG PO (13:39)
--- NOTE | 2020-12-26 15:24 | NUR ---
PIV DC'D, CATHETER INTACT 1531 DC INSTRUCTIONS GIVEN TO PT AND SPOUSE, VERBALIZES UNDERSTANDING, HELPING PT TO GET DRESSED. 1620 DR. LEE HAD BEEN TO BEDSIDE, PT DC'D VIA WC BY TALIB TO POV, DRIVING, ALL BELONGINGS INCLUDING DC PACKET WITH PT/SPOUSE.
--- NOTE | 2020-12-27 14:41 | OP ---
PATIENT NAME: IZABELA SAMUELS MEDICAL RECORD: [id number] :49 LOCATION:[facility] ADMISSION DATE: SURGEON: NISHA LEE MD DATE OF OPERATION: 12/26/2020 PROCEDURE: Colonoscopy. PREOPERATIVE DIAGNOSES: History of polyps, anemia. MEDICATION: Propofol per anesthesia. DESCRIPTION OF PROCEDURE: Colonoscopy was performed. The colonoscope was inserted through the rectum and advanced to the cecum, identified by the ileocecal valve and the appendiceal orifice. The quality of the prep was good. There were multiple sigmoid diverticula visualized. The remainder of the exam was normal. The patient tolerated the procedure well. FINAL DIAGNOSES: Multiple sigmoid diverticula. Remainder of exam is normal other than small internal hemorrhoids. PLAN: Advance diet, fiber supplements. Return to GI office. Continue anemia workup. TRANSINT:[id number] Voice Confirmation ID: [id number] DOCUMENT ID: [id number] NISHA LEE MD at 1441 CC: [id number] DICTATION DATE: 12/26/20 1429 SENIOR SALES ENGINEER: 12/26/20 1652 [facility] 12/26/20 [facility] [address] [place] [address]
== END 2020-12-26 16:20 | disposition home or self-care (01) ==
LOC: D.OPS 11:46
PROVIDERS: ATTEND Internal Medicine Gastroenterology
DX: Z86.010 Personal history of colon polyps (principal); D50.9 Iron deficiency anemia, unspecified; K57.30 Diverticulosis of large intestine without perforation or abscess without bleeding; K64.8 Other hemorrhoids; R13.10 Dysphagia, unspecified; R10.11 Right upper quadrant pain; K74.60 Unspecified cirrhosis of liver

== ENCOUNTER → 2021-01-02 12:48 | Outpatient (CLI) | payer MEDICARE, OTHER ==
[2020-12-26 13:30] VITALS: BMI 33.5
[~2021-01-02 12:48] MED LIST changes: +PEPCID40 MG PO
== END | disposition home or self-care (01) ==
LOC: D.RAD 12:48
PROVIDERS: ATTEND Internal Medicine Gastroenterology
DX: R13.10 Dysphagia, unspecified (principal)

== ENCOUNTER → 2021-01-08 14:53 | Outpatient (CLI) | payer MEDICARE, OTHER ==
[2020-12-26 13:30] VITALS: BMI 33.5
== END | disposition home or self-care (01) ==
LOC: D.CT 14:53
PROVIDERS: ATTEND Thoracic Surgery (Cardiothoracic Vascular Surgery)
DX: I71.4 Abdominal aortic aneurysm, without rupture (principal)

== ENCOUNTER 2021-01-10 18:05 | Inpatient (IN) | payer MEDICARE, OTHER ==
[~2021-01-10] VITALS: Ht 180.3 cm; Wt 113.4 kg
[~2021-01-10 18:05] MED LIST changes: -LYRICA50 MG PO; +LYRICA75 MG PO; +PROPAFENONE HC225 MG PO; -RYTHMOL225 MG PO
[2021-01-10 18:51] LABS: BASOPHILS 0.5 % (0-2); HEMATOCRIT 24.1 % (42.0-54.0); IMMATURE GRANULOCYTES 0.5 % (0-5); LYMPHOCYTE ABS# 1.08 10x3/uL (1.32-3.57); LYMPHOCYTES 28.2 % (15-50); MCH 26.5 pg (26.0-34.0); MCHC 29.9 g/dL (31.0-37.0); MCV 88.6 fL (80.0-100.0); MEAN PLATELET VOLUME 12.7 fL (7.4-10.4); MONOCYTES 13.8 % (2-11); NEUTROPHIL ABS# 1.99 10x3/uL (1.78-5.38); RBC 2.72 10x6/uL (4.20-6.10); RDW 19.1 % (11.5-14.5); WBC 3.8 10x3/uL (4.8-10.8)
[2021-01-10 18:54] LABS: HEMOGLOBIN 7.2 g/dL (13.5-17.5); PLATELET COUNT 73 10x3/uL (130-400)
[2021-01-10 18:55] LABS: PLATELET ESTIMATE DECREASED
[2021-01-10 18:58] LABS: CALC OSMOLALITY 294 mosm/kg (275-300); CALCIUM 8.2 mg/dL (8.5-10.1); CARBON DIOXIDE 25.1 mmol/L (21.0-32.0); CHLORIDE - SERUM 113 mmol/L (98-107); CREATININE - SERUM 1.3 mg/dL (0.6-1.3); GLUCOSE 107 mg/dL (74-106); INR 1.31 (0.85-1.17); POTASSIUM - SERUM 3.9 mmol/L (3.5-5.1); PROTIME 15.1 SECONDS (11.6-15.0); SODIUM 146 mmol/L (136-145); UREA NITROGEN 24 mg/dL (7-18); eGFR NON AFRICAN AMERICAN 58 mL/min (90-120)
[2021-01-10 18:59] LABS: APTT 52.1 SECONDS (22.8-39.4)
[2021-01-10 19:00] VITALS: BP 119/55
[2021-01-10 19:14] LABS: ALBUMIN 3.2 g/dL (3.4-5.0); ALKALINE PHOSPHATASE 90 U/L (30-120); ALT (SGPT) 53 U/L (10-68); BILIRUBIN - TOTAL 0.46 mg/dL (0.2-1.3); CKMB 12.9 U/L (0.0-3.6); CREATINE KINASE 445 UL (21-232); PRO BNP 692 pg/mL (0-125); PROTEIN - SERUM 6.9 g/dL (6.4-8.2)
--- NOTE | 2021-01-10 19:25 | NUR ---
PT TO RADIOLOGY VIA STRETCHER
[2021-01-10 19:28] LABS: TROPONIN-I < 0.017 ng/mL (0.000-0.060)
--- NOTE | 2021-01-10 19:40 | NUR ---
PT RETURNED FROM RADIOLOGY VIA STRETCHER.
[2021-01-10 20:00] VITALS: BP 126/69
[2021-01-10 21:00] VITALS: BP 131/67
--- NOTE | 2021-01-10 21:45 | NUR ---
900 ML CLEAR YELLOW URINE EMPTIED FROM URINAL.
[2021-01-10 22:00] VITALS: BP 137/67
[2021-01-10 23:00] VITALS: BP 135/69
--- NOTE | 2021-01-10 23:00 | NUR ---
PT GIVEN ICE WATER TO DRINK. DENIES FURTHER NEEDS. AT BEDSIDE, CALL LIGHT IN REACH.
[2021-01-10] MEDS ORDERED: HEMOCYTE PLUS C1 CAP PO (23:10)
[2021-01-10] MEDS ORDERED: NAPROSYN500 MG PO (23:13)
[2021-01-10] MEDS ORDERED: MECLIZINE HCL25 MG PO (23:13)
[2021-01-10] MEDS ORDERED: K-TAB10 MEQ PO (23:14)
[2021-01-10] MEDS ORDERED: NITROQUICK0.4 MG SL (23:14)
[2021-01-10] MEDS ORDERED: CIALIS2.5 MG PO (23:16)
[2021-01-10] MEDS ORDERED: TACLONEX SUSPEN60 GM TOPICAL (23:16)
[2021-01-11] VITALS (9 sets, daily range): BP systolic 104–136; BP diastolic 48–73; Ht 180.3 cm; Wt 113.4 kg
[2021-01-11] MEDS ORDERED: BENADRYL25 MG PO (01:08)
[2021-01-11 02:14] LABS: HEMATOCRIT 26.8 % (42.0-54.0); HEMOGLOBIN 8.2 g/dL (13.5-17.5)
[2021-01-11 07:34] LABS: % SATURATION 7 % (15-55); IRON 26 ug/dl (35-150); TOTAL IRON BIND CAPACITY 365 ug/dl (260-445); UNSAT IRON BIND CAPACITY 339 ug/dl (150-375)
--- NOTE | 2021-01-11 07:45 | NUR ---
PT AWAKE AND ALERT IN BED. CL IN REACH. NO NEEDS AT THIS TIME. WCTM
[2021-01-11 08:21] LABS: APTT 50.1 SECONDS (22.8-39.4); INR 1.3 (0.85-1.17)
[2021-01-11 08:39] LABS: ALBUMIN 2.9 g/dL (3.4-5.0); ALKALINE PHOSPHATASE 71 U/L (30-120); ALT (SGPT) 53 U/L (10-68); CALC OSMOLALITY 292 mosm/kg (275-300); CALCIUM 8.1 mg/dL (8.5-10.1); CARBON DIOXIDE 23.8 mmol/L (21.0-32.0); CHLORIDE - SERUM 112 mmol/L (98-107); CKMB 8.5 U/L (0.0-3.6); CREATINE KINASE 345 UL (21-232); CREATININE - SERUM 1.4 mg/dL (0.6-1.3); FERRITIN 46 ng/mL (3-244); GLUCOSE 97 mg/dL (74-106); LDH 234 U/L (85-227); MAGNESIUM - SERUM 2.2 mg/dL (1.8-2.4); PHOSPHOROUS 3.8 mg/dL (2.5-4.9); PROTEIN - SERUM 6.4 g/dL (6.4-8.2); SODIUM 145 mmol/L (136-145); UREA NITROGEN 24 mg/dL (7-18); eGFR NON AFRICAN AMERICAN 53 mL/min (90-120)
[2021-01-11 08:41] LABS: TROPONIN-I < 0.017 ng/mL (0.000-0.060)
[2021-01-11 12:05] LABS: HEMATOCRIT 26.9 % (42.0-54.0); HEMOGLOBIN 8.1 g/dL (13.5-17.5)
[2021-01-11 12:36] LABS: BASOPHILS 0.5 % (0-2); EOSINOPHILS 5.6 % (0-7); HEMATOCRIT 26.8 % (42.0-54.0); HEMOGLOBIN 8.1 g/dL (13.5-17.5); IMMATURE GRANULOCYTES 0.2 % (0-5); LYMPHOCYTE ABS# 1.04 10x3/uL (1.32-3.57); LYMPHOCYTES 25.5 % (15-50); MCH 26.7 pg (26.0-34.0); MCHC 30.2 g/dL (31.0-37.0); MCV 88.4 fL (80.0-100.0); MEAN PLATELET VOLUME 12.1 fL (7.4-10.4); NEUTROPHIL ABS# 2.29 10x3/uL (1.78-5.38); NEUTROPHILS 56.2 % (40-80); PLATELET COUNT 78 10x3/uL (130-400); RBC 3.03 10x6/uL (4.20-6.10); RDW 18.7 % (11.5-14.5); RETIC 2.23 % (0.45-2.28); WBC 4.1 10x3/uL (4.8-10.8)
--- NOTE | 2021-01-11 14:19 | NUR ---
MASOUD IN ROOM. NO NEEDS AT THIS TIME. WOULD LIKE SOMETHING MORE THAN A CLD. SPOKE WITH DR LOPEZ WHO STATES IT IS UP TO GI/SURGERY. STATES HE WILL TOLERATE TODAY. CL IN REACH. WCTM
--- NOTE | 2021-01-11 23:35 | NUR ---
FIRST UNIT BLOOD TRANSFUSING. VITAL SIGNS STABLE. NO TRANSFUSION REACTION NOTED. CPAP ON. SCD'S ON. WILL CONTINUE TO MONITOR.
[2021-01-12] VITALS (12 sets, daily range): BP systolic 106–146; BP diastolic 48–72
--- NOTE | 2021-01-12 00:55 | NUR ---
FIRST UNIT PRBC'S TRANSFUSION COMPLETE. ADMINISTERED LASIX BETWEEN UNITS. VITAL SIGNS STABLE. NO TRANSFUSION REACTION. 2ND UNIT NOW TRANSFUSING. WILL CONTINUE TO MONITOR.
[2021-01-12 06:49] LABS: BASOPHILS 0.4 % (0-2); EOSINOPHILS 4.5 % (0-7); HEMATOCRIT 30.7 % (42.0-54.0); HEMOGLOBIN 9.4 g/dL (13.5-17.5); IMMATURE GRANULOCYTES 0.2 % (0-5); LYMPHOCYTE ABS# 1.01 10x3/uL (1.32-3.57); LYMPHOCYTES 21.8 % (15-50); MCH 26.8 pg (26.0-34.0); MCHC 30.6 g/dL (31.0-37.0); MCV 87.5 fL (80.0-100.0); MEAN PLATELET VOLUME 11.1 fL (7.4-10.4); MONOCYTES 13.4 % (2-11); NEUTROPHIL ABS# 2.76 10x3/uL (1.78-5.38); NEUTROPHILS 59.7 % (40-80); PLATELET COUNT 79 10x3/uL (130-400); RBC 3.51 10x6/uL (4.20-6.10); RDW 18.1 % (11.5-14.5); WBC 4.6 10x3/uL (4.8-10.8)
[2021-01-12 07:21] LABS: ALBUMIN 2.8 g/dL (3.4-5.0); BILIRUBIN - TOTAL 0.9 mg/dL (0.2-1.3); CALCIUM 8.3 mg/dL (8.5-10.1); CREATININE - SERUM 1.2 mg/dL (0.6-1.3); MAGNESIUM - SERUM 2.1 mg/dL (1.8-2.4); PROTEIN - SERUM 6.5 g/dL (6.4-8.2)
[2021-01-12 07:25] LABS: PHOSPHOROUS 2.6 mg/dL (2.5-4.9)
--- NOTE | 2021-01-12 07:30 | NUR ---
PT ALERT AND ORIENTED. MASOUD IN ROOM. NO NEEDS AT THIS TIME. LEFT HAND AND RIGHT AC FLUSHED WITH SOME DIFFICULTY. SCD'S ON. CL IN REACH. WCTM
--- NOTE | 2021-01-12 13:00 | NUR ---
GAVE NEW FOLATE MEDICATION PER EMAR. PT AND HAD QUESTIONS WHICH I ANSWERED ABOUT THE BLOOD LOSS AND FUNCTIONS OF THE SPLEEN AND BONE MARROW. CL IN REACH. NO FURTHER NEEDS/QUESTIONS AT THIS TIME. WCTM
--- NOTE | 2021-01-12 16:57 | NUR ---
PT WALKED LAP AROUND NURSING DESK. 250 FT. SHORTNESS OF BREATH NOTED. PT SATING 96 % ON RA. IV THERAPY TAPED UP. NEW LINENS PROVIDED. PT IN SHOWER FOR HIBI CLEANSE. MASOUD IN ROOM
[2021-01-13] VITALS: BP 97/52
[2021-01-13 04:00] VITALS: BP 95/47
[2021-01-13 06:16] LABS: BASOPHILS 0.5 % (0-2); EOSINOPHILS 4.5 % (0-7); HEMATOCRIT 29.8 % (42.0-54.0); HEMOGLOBIN 9.1 g/dL (13.5-17.5); IMMATURE GRANULOCYTES 0.2 % (0-5); LYMPHOCYTE ABS# 1.18 10x3/uL (1.32-3.57); LYMPHOCYTES 20.4 % (15-50); MCH 26.9 pg (26.0-34.0); MCHC 30.5 g/dL (31.0-37.0); MCV 88.2 fL (80.0-100.0); MEAN PLATELET VOLUME 13.1 fL (7.4-10.4); MONOCYTES 14.2 % (2-11); NEUTROPHIL ABS# 3.49 10x3/uL (1.78-5.38); NEUTROPHILS 60.2 % (40-80); PLATELET COUNT 83 10x3/uL (130-400); RBC 3.38 10x6/uL (4.20-6.10); RDW 18.3 % (11.5-14.5)
[2021-01-13 06:26] LABS: WBC 5.8 10x3/uL (4.8-10.8)
[2021-01-13 06:29] LABS: ALBUMIN 2.6 g/dL (3.4-5.0); ANION GAP 13.8 mmol/L (8-16); BILIRUBIN - TOTAL 0.73 mg/dL (0.2-1.3); CALCIUM 8.2 mg/dL (8.5-10.1); CARBON DIOXIDE 23.4 mmol/L (21.0-32.0); CREATININE - SERUM 1.1 mg/dL (0.6-1.3); POTASSIUM - SERUM 4.2 mmol/L (3.5-5.1); PROTEIN - SERUM 6.3 g/dL (6.4-8.2)
[2021-01-13 06:30] LABS: PHOSPHOROUS 3.4 mg/dL (2.5-4.9)
[2021-01-13 07:31] LABS: APTT 52.8 SECONDS (22.8-39.4); INR 1.36 (0.85-1.17); PROTIME 15.6 SECONDS (11.6-15.0)
--- NOTE | 2021-01-13 08:26 | NUR ---
CONSENTS OBTAINED FOR PROCEDURE.
[2021-01-13 08:43] VITALS: BP 117/79
--- NOTE | 2021-01-13 09:03 | NUR ---
ALERT AND ORIENTED. ASSESSMENT COMPLETE. DENIES NEEDS. BED LOW. CALL CHEN AND PERSONAL ITEMS IN REACH. WILL CONTINUE TO MONITOR.
--- NOTE | 2021-01-13 09:35 | NUR ---
PATIENT TAKEN FOR PROCEDURE.
[2021-01-13 10:48] LABS: PLATELET ESTIMATE DECREASED
[2021-01-13 10:49] LABS: ANISOCYTOSIS OCC; HYPOCHROMASIA OCC
[2021-01-13 14:19] VITALS: BP 101/53
[2021-01-13 17:30] VITALS: BP 132/66
--- NOTE | 2021-01-13 19:45 | NUR ---
RECEIVED BEDSIDE REPORT. PT LAYING IN BED A&O X4. PIV TO LEFT HAND, PATENT AND INFUSING, NO REDNESS OR SWELLING. O2 SAT 95% ON 2L NC. TELEMETRY IN PLACE, 58 SB. PT ABLE TO AMBULATE AD TANIA. EDUCATED ON CL AND NEEDS, VERBALIZED UNDERSTANDING. BED LOW, ALARM ON, CL IN REACH.
[2021-01-13 20:00] VITALS: BP 104/48
[2021-01-14 04:00] VITALS: BP 113/57
[2021-01-14 06:43] LABS: ALBUMIN 2.6 g/dL (3.4-5.0); ANION GAP 13.7 mmol/L (8-16); BILIRUBIN - TOTAL 0.57 mg/dL (0.2-1.3); CALCIUM 8.3 mg/dL (8.5-10.1); CARBON DIOXIDE 23.5 mmol/L (21.0-32.0); CREATININE - SERUM 1.1 mg/dL (0.6-1.3); MAGNESIUM - SERUM 2.1 mg/dL (1.8-2.4); PHOSPHOROUS 2.9 mg/dL (2.5-4.9); POTASSIUM - SERUM 4.2 mmol/L (3.5-5.1); PROTEIN - SERUM 6.3 g/dL (6.4-8.2)
[2021-01-14 07:12] LABS: BASOPHILS 0.5 % (0-2); EOSINOPHILS 5.8 % (0-7); HEMATOCRIT 30.9 % (42.0-54.0); HEMOGLOBIN 9.2 g/dL (13.5-17.5); IMMATURE GRANULOCYTES 0.4 % (0-5); LYMPHOCYTE ABS# 1.21 10x3/uL (1.32-3.57); LYMPHOCYTES 21.8 % (15-50); MCH 26.9 pg (26.0-34.0); MCHC 29.8 g/dL (31.0-37.0); MEAN PLATELET VOLUME 12.7 fL (7.4-10.4); MONOCYTES 13.7 % (2-11); NEUTROPHIL ABS# 3.22 10x3/uL (1.78-5.38); NEUTROPHILS 57.8 % (40-80); PLATELET COUNT 91 10x3/uL (130-400); RBC 3.42 10x6/uL (4.20-6.10); RDW 18.9 % (11.5-14.5); WBC 5.6 10x3/uL (4.8-10.8)
[2021-01-14 07:19] LABS: MCV 90.4 fL (80.0-100.0)
--- NOTE | 2021-01-14 08:00 | NUR ---
PATIENT IN BED WITH IV INTACT. EYES CLOSED RESTING QUIETLY. FAMILY AT BEDSIDE. CALL LIGHT WITHIN REACH.
[2021-01-14 08:52] VITALS: BP 111/54
[2021-01-14 10:12] LABS: HEPATITIS C ANTIBODY <0.1 S/CO RAT (0.0-0.9)
[2021-01-14 13:07] VITALS: BP 129/64
[2021-01-14] MEDS ORDERED: HEMOCYTE PLUS C1 CAP PO (13:37)
[2021-01-14] MEDS ORDERED: FOLATE0.4 MG PO (13:37)
--- NOTE | 2021-01-14 14:00 | NUR ---
PATIENT TELE TAKEN OFF. BEING DC'D. STATED HE IS WAITING FOR DR. SRINIVASAN NURSE PRACTITIONER TO COME SEE HIM. HE WANTS TO KNOW HIS CT SCAN RESULTS. PATIENT GETTING UP TO DRESS. WITH HIM FOR ASSIST.
--- NOTE | 2021-01-14 14:15 | NUR ---
Nutrition Follow-up: Diet: Regular PO intake: 100%, has good appetite and likes the food here. Last BM: 01/12/21 x 2 Wt: 250# (01/11/21) Meds noted: NS@50, lasix Labs reviewed. Recommend continue current diet. RD will follow-up within 7 days.
--- NOTE | 2021-01-14 14:30 | NUR ---
SPOKE WITH SUDHAKAR LEE. STATED SHE TEXTED OSCAR AND IS WAITING ON HER REPONSE.
--- NOTE | 2021-01-14 15:30 | NUR ---
SUDHAKAR STATED SHE TALKED TO OSCAR VIA TEXT AND TO THE PATIENT AND HIS . OK FOR DC HOME AT THIS TIME.
--- NOTE | 2021-01-14 16:39 | MORECARE ---
CASE MANAGEMENT DISCHARGE SUMMARY PATIENT: IZABELA SAMUELS UNIT: [id number] ADM DATE: 01/11/21 AGE: 70 : 49 SEX: M ROOM/BED: D.2222 AUTHOR: DEON,DOC PHYSICIAN: REFERRING PHYSICIAN: ISAIAS CHRISTOPHER MD DATE OF SERVICE: 01/14/21 Case Management Discharge Planning Summary COMMENTS ENTERED DATE: 01/14/21 16:35 CT COMMENT TYPE: Discharge Planning REVIEWER: Amber Palmer CM met with patient at bedside after obtaining verbal consent. CM discussed availability / needs of home health, REHAB and medical equipment. PCP is Dr. Sahu and he uses [facility]. Only equipment he uses at home is a cpap. Denies any dc needs. No medical equipment or home health needed. IMM signed and copy on chart. CM to follow and assist as needed. DCP REVIEW SUMMARY ANTICIPATED D/C DATE: EXPECTED LOS : CASE STATUS: DCP Initiated INITIAL REVIEW: 01/10/2021 INITIAL REVIEWER: Amber Palmer FINAL DISCHARGE DISPOSITION: : FINAL REVIEWER: FINAL REVIEW DATE: DCP Focus Questions & Answers QUESTION: ANSWER : PATIENT: IZABELA SAMUELS ENCOUNTER: [id number] MEDICAL RECORD#: [id number] ADMISSION DATE: 01/11/2021 DISCHARGE DATE: ATTENDING MD: ISAIAS POTTER : AGE: 70 MARITAL STATUS: M DC PLAN ID: [id number] FACILITY: [facility] PRINTED ON: 01/14/21 16:39 CT All edits/amendments must be made on the electronic document DICTATION DATE: 01/14/21 163 NET FISHER: ANN 01/14/21 1639 RPT#: [id number] DC DATE: STATUS: ADM IN [facility] [address] [place] [address] END OF REPORT
[2021-01-14 16:53] VITALS: BP 135/67
--- NOTE | 2021-01-14 17:30 | NUR ---
PATIENT RECIEVED DC INSTRUCTIONS. VERBALIZED UNDERSTANDING. EXPLAINED TO FIELD SALES EXECUTIVE [employer]S AT PHARMACY. AT SIDE. IV REMOVED WITH CATH TIP INTACT. ESCORTED PATIENT OUT OF ROOM TO PRIVATE VEHICLE, VIA WC WITH PERSONAL BELONGINGS.
--- NOTE | 2021-01-15 14:41 | MORECARE ---
CASE MANAGEMENT DISCHARGE SUMMARY PATIENT: IZABELA SAMUELS UNIT: [id number] ADM DATE: 01/11/21 AGE: 70 : 49 SEX: M ROOM/BED: D.2222 AUTHOR: DEON,DOC PHYSICIAN: REFERRING PHYSICIAN: ISAIAS CHRISTOPHER MD DATE OF SERVICE: 01/15/21 Case Management Discharge Planning Summary COMMENTS ENTERED DATE: 01/14/21 16:35 CT COMMENT TYPE: Discharge Planning REVIEWER: Amber Palmer CM met with patient at bedside after obtaining verbal consent. CM discussed availability / needs of home health, REHAB and medical equipment. PCP is Dr. Sahu and he uses [facility]. Only equipment he uses at home is a cpap. Denies any dc needs. No medical equipment or home health needed. IMM signed and copy on chart. CM to follow and assist as needed. DCP REVIEW SUMMARY ANTICIPATED D/C DATE: EXPECTED LOS : CASE STATUS: DCP Initiated INITIAL REVIEW: 01/10/2021 INITIAL REVIEWER: Amber Palmer FINAL DISCHARGE DISPOSITION: : FINAL REVIEWER: FINAL REVIEW DATE: DCP Focus Questions & Answers QUESTION: ANSWER : PATIENT: IZABELA SAMUELS ENCOUNTER: [id number] MEDICAL RECORD#: [id number] ADMISSION DATE: 01/11/2021 DISCHARGE DATE: 01/14/2021 ATTENDING MD: ISAIAS POTTER : AGE: 70 MARITAL STATUS: M DC PLAN ID: [id number] FACILITY: [facility] PRINTED ON: 01/15/21 14:41 CT All edits/amendments must be made on the electronic document DICTATION DATE: 01/15/211440 SUPPLY CHAIN TECHNICIAN: DM 01/15/211440 RPT#: [id number] DC DATE:01/14/21 STATUS: DIS IN [facility] [address] [place] [address] END OF REPORT
== END 2021-01-14 16:16 | disposition home or self-care (01) | DRG 804 ==
LOC: D.ER 18:05 → D.MS 21:50 → OBSVTIME 21:50 → D.MS 21:50
PROVIDERS: Family Medicine; Internal Medicine Hematology & Oncology; Specialist; ADMIT Emergency Medicine; ATTEND Emergency Medicine
PROC: 07DR3ZX Extraction of Iliac Bone Marrow, Percutaneous Approach, Diagnostic (ICD-10-PCS; 2021-01-13)
PROC: 0QB33ZX Excision of Left Pelvic Bone, Percutaneous Approach, Diagnostic (ICD-10-PCS; principal; 2021-01-13 09:30)
DX: D61.818 Other pancytopenia (principal); I48.91 Unspecified atrial fibrillation; I25.10 Atherosclerotic heart disease of native coronary artery without angina pectoris; G47.33 Obstructive sleep apnea (adult) (pediatric); K75.81 Nonalcoholic steatohepatitis (NASH); M19.90 Unspecified osteoarthritis, unspecified site; G62.9 Polyneuropathy, unspecified; K74.60 Unspecified cirrhosis of liver; K25.9 Gastric ulcer, unspecified as acute or chronic, without hemorrhage or perforation; I11.0 Hypertensive heart disease with heart failure; I50.9 Heart failure, unspecified; D50.9 Iron deficiency anemia, unspecified; I71.4 Abdominal aortic aneurysm, without rupture; Z86.73 Personal history of transient ischemic attack (TIA), and cerebral infarction without residual deficits; Z87.891 Personal history of nicotine dependence

== ENCOUNTER 2021-01-16 00:52 | Observation (INO) | payer MEDICARE, OTHER ==
[~2021-01-16] VITALS: Ht 180.3 cm; Wt 108.4 kg
--- NOTE | ~2021-01-16 | EC ---
PATIENT:IZABELA SAMUELS DATE OF SERVICE: 01/16/21 SEX: M MEDICAL RECORD: [id number] DATE OF : 48 LOCATION:D. D.212 AGE OF PATIENT: 70 ADMISSION DATE: 01/16/21 REFERRING PHYSICIAN: INTERPRETING PHYSICIAN: VIANEY CONNELLY MD ECHOCARDIOGRAM REPORT ECHO CHARGES 4 ECHO COMPLETE Date: 01/16/21 CLINICAL DIAGNOSIS: ACUTE ON CHRONIC CHF ECHOCARDIOGRAPHIC MEASUREMENTS (adult normal given) AC root (d.<3.7cm) 3.8 cm LV Septum d (<1.2 cm> 0.9 cm Valve Excursion 1.8 cm LV Septum (systole) 1.3 cm Left Atria (s.<4.0cm> 4.2 cm LVPW d(<1.2cm) 1.0 cm RV (d.<2.3cm) 3.4 cm LVPW (sytole) 1.1 cm LV diastole(<5.6CM) 5.2 cm MV E-F(>70mm/sec) cm LV systole 3.9 cm LVOT Diameter 1.9 cm MV exc.(>10mm) 1.7 cm Est.ejection fraction (50-75%) % DOPPLER: LVIT cm/sec A 62 cm/sec E 64 cm/sec LA cm/sec RVSP 15 mmHg LVOT 111 cm/sec AOP1/2T m/s Asc. Ao 125 cm/sec RVOT 76 cm/sec RA cm/sec PA 60 cm/sec AV Gradient Peak 6.2 mmHg AV Mean 3.7 mmHg AV Area 2.7 cm MV Gradient Peak 2.8 mmHg MV Mean 1.6 mmHg MV Area cm COMMENTS: Filing And Polishing Supervisor: Mike MARIN Cloth Handler: Mike Connelly TAPE# Pericardial Effusion N DATE OF SERVICE: CLINICAL DIAGNOSIS: CHF. INTERPRETATION: This is a technically difficult study. Overall, normal left ventricular chamber size with moderate global LV contractile dysfunction, ejection fraction of 35% to 40%. Left atrial chamber appear normal. Right atrium and right ventricular chamber size and function appears normal. Aortic valve not well visualized. No aortic regurgitation/stenosis noted. Mitral valve appears normal. Mild mitral regurgitation. Tricuspid valve appears ECHOCARDIOGRAM REPORT [id number] IZABELA SAMUELS normal. Trivial tricuspid regurgitation. Pulmonic valve is not well visualized. No pulmonary regurgitation. No pericardial effusion visualized. IMPRESSION: Technically difficult study, overall normal left ventricular chamber size with moderate global LV contractile dysfunction, ejection fraction of 35% to 40%. TRANSINT:[id number] Voice Confirmation ID: [id number] DOCUMENT ID: [id number] VIANEY CONNELLY MD CC: [id number] DICTATION DATE: 01/16/21 1534 HOME DAY CARE PROVIDER: 01/16/212006 ADM IN [facility] [address] [place] [id number]
[~2021-01-16 00:52] MED LIST changes: +BENADRYL25 MG PO; +CIALIS2.5 MG PO; +FOLATE0.4 MG PO; +HEMOCYTE PLUS C1 CAP PO; +K-TAB10 MEQ PO; +MECLIZINE HCL25 MG PO; +NITROQUICK0.4 MG SL; +TACLONEX SUSPEN60 GM TOPICAL
[2021-01-16 01:42] LABS: BASOPHILS 0.6 % (0-2); EOSINOPHILS 7.2 % (0-7); HEMATOCRIT 35.5 % (42.0-54.0); IMMATURE GRANULOCYTES 0.3 % (0-5); LYMPHOCYTE ABS# 1.27 10x3/uL (1.32-3.57); LYMPHOCYTES 19.8 % (15-50); MCH 27.5 pg (26.0-34.0); MCV 88.8 fL (80.0-100.0); MEAN PLATELET VOLUME 12.1 fL (7.4-10.4); MONOCYTES 10.6 % (2-11); NEUTROPHIL ABS# 3.96 10x3/uL (1.78-5.38); NEUTROPHILS 61.5 % (40-80); RDW 18.9 % (11.5-14.5); WBC 6.4 10x3/uL (4.8-10.8)
[2021-01-16 01:48] LABS: CALC OSMOLALITY 280 mosm/kg (275-300); CARBON DIOXIDE 25.7 mmol/L (21.0-32.0); CHLORIDE - SERUM 106 mmol/L (98-107); CREATININE - SERUM 0.9 mg/dL (0.6-1.3); GLUCOSE 97 mg/dL (74-106); POTASSIUM - SERUM 4.1 mmol/L (3.5-5.1); SODIUM 141 mmol/L (136-145); UREA NITROGEN 13 mg/dL (7-18); eGFR NON AFRICAN AMERICAN 88 mL/min (90-120)
[2021-01-16 01:49] LABS: PLATELET COUNT 116 10x3/uL (130-400)
[2021-01-16 01:55] LABS: INR 1.28 (0.85-1.17); PROTIME 14.8 SECONDS (11.6-15.0)
[2021-01-16 01:56] LABS: APTT 55.7 SECONDS (22.8-39.4)
[2021-01-16 02:01] LABS: ALBUMIN 3.1 g/dL (3.4-5.0); ALKALINE PHOSPHATASE 77 U/L (30-120); ALT (SGPT) 61 U/L (10-68); AMYLASE - SERUM 37 U/L (25-115); BILIRUBIN - TOTAL 0.96 mg/dL (0.2-1.3); LIPASE 182 U/L (73-393); PRO BNP 1828 pg/mL (0-125); PROTEIN - SERUM 7.4 g/dL (6.4-8.2); TROPONIN-I 0.018 ng/mL (0.000-0.060)
[2021-01-16 04:21] LABS: BILIRUBIN NEGATIVE (NEGATIVE); KETONE NEGATIVE (NEGATIVE); NITRITE NEGATIVE (NEGATIVE); UROBILINOGEN NORMAL mg/dL (< 2)
[2021-01-16 05:10] VITALS: BP 151/79; BMI 33.4
--- NOTE | 2021-01-16 05:19 | NUR ---
RECIEVED REPORT FROM ER. ARRIVED TO [facility] IN W/C. TRANSFERED SELF. ALERT AND ORIENTED X4. UP AD TANIA. DENIES ANY NEEDS AT THIS TIME. ASSESSMET COMPLETED.
[2021-01-16 08:09] VITALS: BP 127/70
[2021-01-16 12:00] VITALS: BP 125/61
[2021-01-16 13:59] VITALS: Ht 180.3 cm; Wt 108.4 kg
[2021-01-16 15:37] LABS: MAGNESIUM - SERUM 2.1 mg/dL (1.8-2.4); POTASSIUM - SERUM 3.7 mmol/L (3.5-5.1)
[2021-01-16 16:12] VITALS: BP 123/63
--- NOTE | 2021-01-16 16:52 | NUR ---
PATIENT STATES HE IS CRAMPING AFTER BEING GIVEN LASIX. STATES HIS LEGS AND FINGERS HURT. RECHECKED POTASSIUM AND MAGNESIUM, LEVELS NORMAL. CALLED [facility] TO SEE WHAT WE CAN DO. NO ANSWER. WILL TRY AGAIN.
[2021-01-16 19:26] VITALS: BP 132/63
--- NOTE | 2021-01-17 00:58 | NUR ---
0--PT IN ROOM W/ PT. PLEASANT & COOPERATIVE. VERY TALKATIVE C/O LEGS/HAND FREQUENTLY CRAMPING & CAUSING SIGNIFICANT PAIN.
[2021-01-17 03:41] VITALS: BP 128/6; BP 128/62
--- NOTE | 2021-01-17 05:59 | NUR ---
HAS RESTED IN BED MOST OF NIGHT. GOT UP ONCE D/T CRAMPING TO LOWER EXTREMITY & HANDS. UP TO BATHROOM TO VOID BY SELF THROUGHOUT THE NIGHT. NO DISTRESS NOTED AT PRESENT. WILL CONTINUE TO MONITOR
[2021-01-17 06:36] LABS: BASOPHILS 0.8 % (0-2); EOSINOPHILS 4.9 % (0-7); HEMATOCRIT 34.9 % (42.0-54.0); HEMOGLOBIN 11.1 g/dL (13.5-17.5); IMMATURE GRANULOCYTES 0.2 % (0-5); LYMPHOCYTE ABS# 1.26 10x3/uL (1.32-3.57); LYMPHOCYTES 20.7 % (15-50); MCH 27.8 pg (26.0-34.0); MCHC 31.8 g/dL (31.0-37.0); MCV 87.5 fL (80.0-100.0); MEAN PLATELET VOLUME 12.6 fL (7.4-10.4); MONOCYTES 13.8 % (2-11); NEUTROPHIL ABS# 3.64 10x3/uL (1.78-5.38); NEUTROPHILS 59.6 % (40-80); PLATELET COUNT 109 10x3/uL (130-400); RBC 3.99 10x6/uL (4.20-6.10); RDW 19.5 % (11.5-14.5); WBC 6.1 10x3/uL (4.8-10.8)
[2021-01-17 06:59] LABS: ALBUMIN 3.1 g/dL (3.4-5.0); ANION GAP 14.3 mmol/L (8-16); BILIRUBIN - TOTAL 0.97 mg/dL (0.2-1.3); CALCIUM 9.3 mg/dL (8.5-10.1); CARBON DIOXIDE 26.2 mmol/L (21.0-32.0); CREATININE - SERUM 1.1 mg/dL (0.6-1.3); POTASSIUM - SERUM 3.5 mmol/L (3.5-5.1); PROTEIN - SERUM 7.4 g/dL (6.4-8.2)
--- NOTE | 2021-01-17 07:00 | NUR ---
Lying in bed, awake/alert/oriented, T/R self with assist ad kwabena, cont of B/B with BRPs with assist ad kwabena, denies pain/other discomfort at this time, call light/phone/water within reach, no s/s of acute distress observed.
--- NOTE | 2021-01-17 08:30 | NUR ---
Family at bedside.
[2021-01-17 09:10] VITALS: BP 117/67
[2021-01-17] MEDS ORDERED: LASIX40 MG PO (10:07)
[2021-01-17] MEDS ORDERED: K-DUR20 MEQ PO (10:08)
[2021-01-17 12:59] VITALS: BP 105/60
--- NOTE | 2021-01-17 13:20 | NUR ---
Provided written/verbal discharge instructions/education to which spouse voiced understanding, discontinued IV access/cardiac telemetry monitoring.
--- NOTE | 2021-01-17 13:36 | NUR ---
Discharged home to self care in stable condition via w/c accompanied by hospital staff and spouse, no s/s of acute distress observed.
== END 2021-01-17 13:36 | disposition home or self-care (01) ==
LOC: OBSVTIME → D.ER 00:52 → OBSVTIME 03:42 → D.M2 03:42 → D.ER 03:42 → D.M2 03:42 → OBSVTIME 01-17 10:29 → D.M2 01-17 13:36
PROVIDERS: Family Medicine; ADMIT Family Medicine; ATTEND Family Medicine
DX: I11.0 Hypertensive heart disease with heart failure (principal); I50.33 Acute on chronic diastolic (congestive) heart failure; K74.60 Unspecified cirrhosis of liver; I25.10 Atherosclerotic heart disease of native coronary artery without angina pectoris; K75.81 Nonalcoholic steatohepatitis (NASH); R06.02 Shortness of breath; R10.9 Unspecified abdominal pain; D64.9 Anemia, unspecified

== ENCOUNTER → 2021-01-29 10:48 | Outpatient (CLI) | payer MEDICARE, OTHER ==
[2021-01-16 13:59] VITALS: BMI 33.3
[~2021-01-29 10:48] MED LIST changes: +K-DUR20 MEQ PO; +LASIX40 MG PO
== END | disposition home or self-care (01) ==
LOC: D.NM 10:48
PROVIDERS: ATTEND Family Medicine
DX: D64.9 Anemia, unspecified (principal)

== ENCOUNTER → 2021-02-18 15:31 | Outpatient (CLI) | payer MEDICARE, OTHER ==
[2021-01-16 13:59] VITALS: BMI 33.3
== END | disposition home or self-care (01) ==
LOC: D.LAB 15:31
PROVIDERS: ATTEND Internal Medicine Gastroenterology
DX: K74.60 Unspecified cirrhosis of liver (principal)